=== PATIENT | female | born 1990 | race Caucasian/White ===

== ENCOUNTER 2017-04-17 22:08 | Emergency (ER) | payer OTHER, SELFPAY ==
[2017-04-17 22:25] VITALS: RESP 18; TEMP 98.2; O2SAT 100
--- NOTE | 2017-04-17 23:18 | ED PDOC ---
HPI: Back Time Seen by Provider: 04/17/17 23:15 Chief Complaint (Nursing): Back Pain Chief Complaint (Provider): back pain History Per: Patient History/Exam Limitations: no limitations Additional Complaint(s): 27yo F with hx of HTN in ED for eval of acute lower back pain sustained 3-4days ago. denies any acute injury denies hematuira, dysuria abd pain nasuea vomiting fever chills, numbness/tingling radiating down to lower ext. Past Medical History Reviewed: Historical Data, Nursing Documentation, Vital Signs Vital Signs: Last Vital Signs Temp 98.2 F 04/17/17 22:21 Pulse 101 H 04/17/17 22:21 Resp 18 04/17/17 22:21 BP 155/74 H 04/17/17 22:21 Pulse Ox 100 04/17/17 22:21 - Medical History PMH: No Chronic Diseases - Family History Family History: States: No Known Family Hx - Home Medications Home Medications: Ambulatory Orders Medication Instructions Recorded Cyclobenzaprine [Cyclobenzaprine 10 mg PO BID #14 tab 04/17/17 HCl] Ibuprofen [Motrin] 400 mg PO Q6 #30 tab 04/17/17 - Allergies Allergies/Adverse Reactions: Allergies Allergy/AdvReac Type Severity Reaction Status Date / Time No Known Allergies Allergy Verified 04/17/17 22:21 Review of Systems ROS Statement: Except As Marked, All Systems Reviewed And Found Negative Musculoskeletal: Positive for: Back Pain Physical Exam - Reviewed Nursing Documentation Reviewed: Yes Vital Signs Reviewed: Yes - Physical Exam Appears: Positive for: Well, Non-toxic, No Acute Distress Skin: Positive for: Normal Color, Warm, DRY Cardiovascular/Chest: Positive for: Regular Rate, Rhythm Respiratory: Positive for: CNT, Normal Breath Sounds Back: Positive for: Other (back pain-sacaral area tenderness noted. no bruising noted. neg straight leg raise. no abd pain no CVA tenderness) Extremity: Positive for: Normal ROM Neurologic/Psych: Positive for: Alert, Oriented - Laboratory Results Urine POC: Negative Urine dip results: Negative for: Leukocyte Esterase, Blood, Nitrate, Ketones, Glucose, Bilirubin, Protein - ECG O2 Sat by Pulse Oximetry: 100 - Progress ED Course And Treament: upreg, ultram, Xray of sacara area Medical Decision Making Medical Decision Making: unremarkable imagining Udip:negative no evidence of renal stone d/c with: flexril and naproxen plan:f/.u with pmd Disposition - Clinical Impression Clinical Impression: Back pain - Patient ED Disposition Is Patient to be Admitted: No Counseled Patient/Family Regarding: Need For Followup - Disposition Disposition: Routine/Home Disposition Time: 23:47 Condition: STABLE Prescriptions: Cyclobenzaprine [Cyclobenzaprine HCl] 10 mg PO BID #14 tab Ibuprofen [Motrin] 400 mg PO Q6 #30 tab Instructions: Acute Low Back Pain (ED)
[2017-04-17 23:59] VITALS: BP 148/81; PULSE 91
--- NOTE | 2017-04-18 12:02 | RAD ---
PROCEDURE: Sacroiliac joints HISTORY: injury COMPARISON: Not available TECHNIQUE: AP and oblique views FINDINGS: There is mild degenerative arthritis involving the inferior 1/3 of both the right and left sacroiliac joint. There is sclerosis along the iliac side of the SI joint bilaterally. Mild marginal productive bony change is seen at the inferior aspect of the articulations. There are no articular erosions. There is no widening or narrowing of either sacroiliac joint. IMPRESSION: Bilateral mild sacroiliac degenerative arthritis.
== END 2017-04-17 23:57 | disposition home or self-care (01) ==
LOC: H.ER 22:08
DX: M54.5 Low back pain (principal)